=== PATIENT | female | born 1965 | race Caucasian/White ===

== ENCOUNTER → 2016-08-09 | Outpatient (CLI) | payer OTHER ==
[~2016-08-09] MED LIST: ACYC-114 PO; ALBU8.5H3 INH; ALEN10TA6 PO; ALEN70TA3 PO; ASCO1CAP PO; ATOR10TA9 PO; AZIT500T77 PO; BENZ100C PO; CALC1CAP8 PO; CEFD300C37 PO; CHOL20003 PO; CYCL-259 PO; CYCL5TAB PO; FEXO1TAB29 PO; L-NO1TBD4 PO; LACT1CAP24 PO; LACT1CAP35 PO; LEVO1.5T10 PO; METR500T PO; MULT-717 PO; NORT10CA PO; OMNIPAQUE 350 MG/ML, 100ML BOTTLE ONE; ONDA4TAB7 PO; OXYC-302 PO; POLY17PO5 PO; PSEU120T60 PO; PSEU30TA17 PO; TRAM50TA2 PO; [UNRECOGNIZED DRUG - REMARK] PO
== END | disposition home or self-care (01) ==
LOC: RAD 13:25
PROVIDERS: ATTEND Family Medicine
DX: R91.8 Other nonspecific abnormal finding of lung field (principal)
CPT/HCPCS: 71275; Q9967

== ENCOUNTER → 2016-10-21 | Outpatient (CLI) | payer OTHER ==
[~2016-10-21] MED LIST changes: +CHOL2000 PO; -CHOL20003 PO; -OMNIPAQUE 350 MG/ML, 100ML BOTTLE ONE
== END | disposition home or self-care (01) ==
LOC: PETCFH 07:59
PROVIDERS: ATTEND Internal Medicine Critical Care Medicine
DX: R91.1 Solitary pulmonary nodule (principal); I77.810 Thoracic aortic ectasia
CPT/HCPCS: 78815; A9552

== ENCOUNTER → 2017-03-28 | Outpatient (CLI) | payer OTHER ==
[~2017-03-28] MED LIST changes: -ALBU8.5H3 INH; +ALBU8.5H8 INH; +AZIT500T5 PO; -AZIT500T77 PO
== END | disposition home or self-care (01) ==
LOC: CFH 08:07
PROVIDERS: ATTEND Internal Medicine Critical Care Medicine
DX: R91.1 Solitary pulmonary nodule (principal)
CPT/HCPCS: 71250